=== PATIENT | female | born 1985 ===

== ENCOUNTER 2025-02-22 19:54 | Emergency (ER) | payer MEDICARE, MEDICAID ==
[~2025-02-22] VITALS: Ht 167.6 cm; Wt 70.7 kg
[2025-02-22 20:01] VITALS: BP 101/60; PULSE 73; TEMP 98.3; O2SAT 98
[2025-02-22 20:36] LABS: URINE HCG NEGATIVE (NEG)
--- NOTE | 2025-02-22 20:38 | RADIOLOGY REPORT ---
CLINICAL INDICATION: HAND PAIN RIGHT TECHNIQUE: 3 views right hand, 3 views right wrist DI HAND, COMPLETE (3VW MIN), DI WRIST, COMPLETE (3VW MIN) Comparison: None FINDINGS: Comminuted, moderately displaced, dorsally impacted intra-articular fracture of the distal radius. Associated soft tissue swelling. Probable nondisplaced ulnar styloid fracture. No dislocation or additional fracture. IMPRESSION: 1. Comminuted, dorsally impacted intra-articular right distal radius fracture. 2. No acute fracture of the right hand.
--- NOTE | 2025-02-22 20:40 | RADIOLOGY REPORT ---
HISTORY: TRAUMA TO FACE TECHNIQUE: Nonenhanced axial images through the facial bones with coronal and sagittal MPR. Radiation Dose Information: CT Dose: CTDI volume is 54 mGy. Dose-length product is 919 mGy*cm COMPARISON: None FINDINGS: No acute fracture. Moderate soft tissue swelling overlying the right zygomatic arch. Several dental restorations without acute finding of the oral cavity. The orbits are unremarkable. Mild mucosal thickening of the paranasal sinuses. The mastoid cells are clear. No acute finding of the imaged intracranial contents were cervical spine. IMPRESSION: Right facial soft tissue swelling without acute facial bone fracture. Radiation optimization: All CT scans at this facility use at least one of these dose optimization techniques: automated exposure control mA and/or kV adjustment per patient size (includes targeted exams where dose is matched to clinical indication) or iterative reconstruction.
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
[2025-02-22] MEDS: LIDOcaine 1% 30ml preserv. free vial SQ STA (21:47)
[2025-02-22] MEDS ORDERED: HYDR-3965 PO (22:04)
[2025-02-22 22:15] VITALS: RESP 16
[2025-02-22] MEDS: HYDROcodone/acetaminophen 5mg/325mg tablet PO ONE (22:15)
== END 2025-02-22 22:32 | disposition home or self-care (01) ==
LOC: ER 19:54
DX: S52.591A Other fractures of lower end of right radius, initial encounter for closed fracture (principal); W18.39XA Other fall on same level, initial encounter; Y93.89 Activity, other specified; Y92.89 Other specified places as the place of occurrence of the external cause; Y99.8 Other external cause status
CPT/HCPCS: 25605; 70486; 73110; 73130; 81025; 99284; A4565; A6449